=== PATIENT | female | born 1960 | race Caucasian/White ===

== ENCOUNTER 2019-04-08 10:51 | Inpatient (IN) | payer OTHER ==
[2019-04-08] MEDS ORDERED: IPRATROPIUM/ALBUTEROL (0.5MG/3MG) NEB INH ONE (11:02)
[2019-04-08] MEDS ORDERED: METHYLPREDNISOLONE PF 125MG/VIAL IVP ONE (11:02)
--- NOTE | 2019-04-08 11:07 | Emergency Department Record ---
History of Present Illness - General Chief Complaint: Difficulty Breathing Stated Complaint: NATALY Time Seen by Provider: 04/08/19 11:02 Source: Patient Mode of Arrival: Ambulatory Limitations: No limitations - History of Present Illness Initial Comments: 58 yo female presents with just over a week of cough and shortness of breath. She is a smoker. She does have a history of asthma. She states the cough has intermittently been productive. She was treated Amoxicillin, inhaler and steroids in the [facility]. She did initially improve but it got worse soon after the steroids finished. No fever. It does hurt to cough. No leg pain or swelling. MD Complaint: Cough, Shortness of breath -: Week(s) (1) Severity: Moderate Quality: Other Consistency: Constant Improves With: Nothing Worsens With: Coughing Known History Of: Asthma Context: Recent URI Associated Symptoms: Cough Treatments Prior to Arrival: Bronchodilator, Other (Steroids and Antibiotics) - Related Data Home Medications Medication Instructions Recorded Confirmed Last Taken Albuterol Sulfate [Ventolin Hfa] 1 - 2 puff IH .EVERY 4-6 HOURS PRN 04/08/19 04/08/19 Unknown Benzonatate [Tessalon] 1 cap PO Q8H PRN 04/08/19 04/08/19 Unknown Fluticasone Propionate [Flovent 12 gm IH DAILY 04/08/19 04/08/19 Unknown Hfa] Guaifenesin [Mucinex] 1,200 mg PO DAILY 04/08/19 04/08/19 Unknown Lisinopril/Hydrochlorothiazide 1 each PO DAILY 04/08/19 04/08/19 Unknown [Lisinopril-Hctz 20-12.5 mg Tab] Allergies Allergy/AdvReac Type Severity Reaction Status Date / Time No Known Allergies Allergy no Verified 04/08/19 11:15 allergies Review of Systems Constitutional: Denies: Chills, Fever, Malaise, Weakness Eyes: Denies: Eye discharge, Eye pain, Vision change ENT: Reports: Congestion Respiratory: Reports: Cough, Dyspnea, Wheezes Cardiovascular: Denies: Chest pain, Palpitations, Syncope Endocrine: Denies: Fatigue, Polydipsia, Polyuria Gastrointestinal: Denies: Abdominal pain, Diarrhea, Nausea, Vomiting Genitourinary: Denies: Dysuria, Urgency Musculoskeletal: Denies: Arthralgia, Back pain, Myalgia Skin: Denies: Bruising, Change in color, Rash Neurological: Denies: Headache Psychiatric: Denies: Anxiety Hematological/Lymphatic: Denies: Easy bleeding, Easy bruising Physical Exam - General General Appearance: Alert, Oriented x3, Cooperative, No acute distress Limitations: No limitations - Head Head exam: Atraumatic, Normal inspection - Eye Eye exam: Normal appearance, PERRL. negative: Conjunctival injection, Scleral icterus - ENT ENT exam: Normal exam, Mucous membranes moist Ear exam: Normal external inspection Nasal Exam: Normal inspection Mouth exam: Normal external inspection - Neck Neck exam: Normal inspection - Respiratory Respiratory exam: Decreased breath sounds, Prolonged expiratory, Rhonchi, Wheezes. negative: Normal lung sounds bilaterally, Accessory muscle use, Stridor - Cardiovascular Cardiovascular Exam: Regular rate, Normal rhythm, Normal heart sounds - GI/Abdominal GI/Abdominal exam: Soft. negative: Tenderness - Rectal Rectal exam: Deferred - exam: Deferred - Extremities Extremities exam: Normal inspection. negative: Pedal edema, Tenderness - Back Back exam: Denies: CVA tenderness (R), CVA tenderness (L) - Neurological Neurological exam: Alert, Oriented X3 - Psychiatric Psychiatric exam: Normal affect, Normal mood - Skin Skin exam: Dry, Intact, Normal color, Warm Course - Reevaluation(s) Reevaluation #1: 04/08/19 11:19 EKG #1: 11:04 Rate: 120 Rhythm: sinus tachycardia [place]: normal Intervals: normal ST segments: no acute abnormalities, minimal J point elevation Prior: 04/08/19 12:11 The labs were reviewed No acute changes on the CBC The K on the CMP was 3.3 Replacement ordered Troponin is normal BNP normal for age The CXR was reviewed by me. Infiltrate noted on the right consistent with pneumonia 04/08/19 12:19 Influenza are negative 04/08/19 12:26 The case was discussed with Tara Garay ANALYSIS DIRECTOR for admission for pneumonia Medical Decision Making - Lab Data Result diagrams: 04/08/19 11:15 04/08/19 11:15 Disposition Disposition: Admit Clinical Impression: Pneumonia Qualifiers: Pneumonia type: due to unspecified organism Laterality: right Lung location: lower lobe of lung Qualified Code(s): J18.1 - Lobar pneumonia, unspecified organism Disposition: Home, Self-Care Decision to Admit: Admit from ER Decision to Admit Date: 04/08/19 Decision to Admit Time: 12:13 Condition: (1) Good Forms: Patient Portal Access Time of Disposition: 12:13 Quality - Quality Measures Quality Measures: N/A - Blood Pressure Screening Does Patient Have Any of the Following: Active Dx of HTN Blood Pressure Classification: Hypertensive Reading Systolic Measurement: 192 Diastolic Measurement: 118 Screening for High Blood Pressure: Patient Exclusion, Hx of HTN [[id number]]
[2019-04-08 11:22] LABS: ABSOLUTE NEUTROPHIL COUNT 7.23; BASO % 0.4 % (0-6); EOS % 2.7 % (0-6); HEMATOCRIT 40.9 % (35.0-47.0); HEMOGLOBIN 13.2 gm/dl (11.6-16.0); LYMPH % 15.7 % (16-45); MEAN CELL VOLUME 87.6 fl (81-97); MEAN CORPUSCULAR HEMOGLOBIN 28.3 pg (27-33); MEAN CORPUSCULAR HGB CONC 32.3 g/dl (32-36); MEAN PLATELET VOLUME 10.1 fl (7.4-10.4); MONO % 6.2 % (0-9); PLATELET COUNT 231 K/uL (130-400); RED BLOOD COUNT 4.67 M/uL (3.80-5.40); RED CELL DISTRIBUTION WIDTH 13.5 % (11.5-14.5); WHITE BLOOD COUNT W/O DIFF 9.6 K/uL (4.2-12.2)
[2019-04-08 11:32] LABS: BLOOD UREA NITROGEN 14 mg/dL (6-20); CREATININE 0.6 mg/dL (0.5-0.9); EST GLOMERULAR FILTRATION RATE > 60 mL/min; TOTAL PROTEIN 8.1 g/dL (6.6-8.7)
[2019-04-08 11:34] LABS: GLUCOSE,RANDOM 132 mg/dL (74-109)
[2019-04-08 11:37] LABS: ALB/GLOB RATIO 1.1 (1.1-1.8); ALBUMIN 4.3 g/dL (4.0-5.0); ALKALINE PHOSPHATASE 77 U/L (35-104); ALT/SGPT 17 U/L (<33); AST/SGOT 24 U/L (10.0-35.0)
[2019-04-08] MEDS ORDERED: POTASSIUM CHLORIDE 20 MEQ TABLET PO ONE (12:11)
[2019-04-08] MEDS ORDERED: AZITHROMYCIN 500 MG TABLET PO ONE (12:13)
[2019-04-08] MEDS ORDERED: CEFTRIAXONE 1GM/50ML BAG 1 GM/50 ML BAG IVPB ONE (12:13)
[2019-04-08] MEDS ORDERED: ALBUTEROL SULFATE (0.083%) 2.5 MG/3 ML NEB INH PRN (12:47)
[2019-04-08] MEDS ORDERED: ACETAMINOPHEN 325 MG TAB PO PRN (12:47)
--- NOTE | 2019-04-08 13:10 | History & Physical ---
History of Present Illness - Date of Service Date of Service for History & Physical: 04/08/19 - History of Present Illness Admitting Diagnosis: Pneumonia, Asthma History of Present Illness: 58 year old female patient presented to ED for evaluation of worsening cough and shortness of breath. Patient reports being treated 04/04/19 in [facility] with Amoxicillin and steroids for bronchitis. Patient states that as soon as the steroids were completed she noted worsening shortness of breath resume. Patient reports a non-productive cough, denies fever or chills. Patient is a current smoker, also reports a history of asthma which is treated with prn albuterol. Patient reports a history of only HTN in addition to the asthma. PCP: Dr. Janessa Calles ([place]) ED Course: CXR: RML and RADHAMES infiltrates WBC 9.6 Troponin <0.01 Influenza negative EK, sinus tachycardia Rocephin 1g q12h Azithromycin 500mg daily 125mg Solumedrol, 60mg q8h Duoneb q4h 04/08/19: Patient A&O x 4, resting comfortably in bed. Mild conversational dyspnea noted. Reports mild rib pain with coughing. Hypertension noted on exam, denies headache, dizziness, numbness, or chest pain. Travel Screening - Travel/Exposure Within Last 30 Days Have you traveled within the last 30 days?: No Review of Systems Reviewed: No additional complaints except as noted below Constitutional: Denies: Chills, Fever, Malaise, Weakness Eyes: Denies: Eye discharge, Eye pain, Vision change ENT: Reports: Congestion Respiratory: Reports: Cough, Dyspnea, Wheezes Cardiovascular: Denies: Chest pain, Palpitations, Syncope Endocrine: Denies: Fatigue, Polydipsia, Polyuria Gastrointestinal: Denies: Abdominal pain, Diarrhea, Nausea, Vomiting Genitourinary: Denies: Dysuria, Urgency Musculoskeletal: Denies: Arthralgia, Back pain, Myalgia Skin: Denies: Bruising, Change in color, Rash Neurological: Denies: Headache Psychiatric: Denies: Anxiety Hematological/Lymphatic: Denies: Easy bleeding, Easy bruising Past Medical History - SOCIAL HISTORY Smoking Status: Current every day smoker Alcohol Use: None Drug Use: None - RESPIRATORY Hx Respiratory Disorders: Yes Hx Asthma: Yes - CARDIOVASCULAR Hx Cardio Disorders: Yes Hx Hypertension: Yes - NEURO Hx Neuro Disorders: No - GI Hx GI Disorders: No - Hx Genitourinary Disorders: No - ENDOCRINE Hx Endocrine Disorders: No - MUSCULOSKELETAL Hx Musculoskeletal Disorders: No - PSYCH Hx Psych Problems: No - HEMATOLOGY/ONCOLOGY Hx Hematology/Oncology Disorders: No Family Medical History Any Significant Family History?: No H&P Meds/Allergies - Allergies Allergies: Allergies Allergy/AdvReac Type Severity Reaction Status Date / Time No Known Allergies Allergy no Verified 04/08/19 11:15 allergies - Home Medications Home Medications Medication Instructions Recorded Confirmed Last Taken Albuterol Sulfate [Ventolin Hfa] 1 - 2 puff IH .EVERY 4-6 HOURS PRN 04/08/19 04/08/19 Unknown Benzonatate [Tessalon] 1 cap PO Q8H PRN 04/08/19 04/08/19 Unknown Fluticasone Propionate [Flovent 12 gm IH DAILY 04/08/19 04/08/19 Unknown Hfa] Guaifenesin [Mucinex] 1,200 mg PO DAILY 04/08/19 04/08/19 Unknown Lisinopril/Hydrochlorothiazide 1 each PO DAILY 04/08/19 04/08/19 Unknown [Lisinopril-Hctz 20-12.5 mg Tab] - Active Medications Active Medications: Current Medications Acetaminophen (Tylenol 325mg) 650 mg PO Q6H PRN PRN Reason: PAIN - MILD(1-4)/FEVER Albuterol Sulfate (Albuterol Sulfate) 2.5 mg INH RESP.Q2H PRN PRN Reason: DIFFICULTY IN BREATHING Albuterol/Ipratropium (Duoneb) 3 ml INH RESP.Q4H.[facility] Azithromycin (Zithromax) 500 mg PO DAILY [facility] Benzonatate (Tessalon) 100 mg PO Q8H PRN PRN Reason: COUGH Hydrochlorothiazide (Hctz 12.5mg) 12.5 mg PO DAILY [facility] CEFTRIAXONE 1GM/50ML BAG (Ceftriaxone 1 Gm-D5w Bag) 1 gm in 50 mls @ 100 mls/hr IVPB Q12HR [facility] Lisinopril (Zestril) 20 mg PO DAILY [facility] Methylprednisolone Sodium Succinate (Solu-Medrol) 60 mg IVP Q8H [facility] Non-Formulary Medication (Fluticasone Propionate [Flovent Hfa]) 12 gm IH DAILY [facility] Physical Exam - Vital Signs Vital Signs: Vital Signs - Last 24 Hrs Temp Pulse Pulse Resp BP BP Pulse Ox 04/08/19 12:23 110 H 20 191/105 98 04/08/19 11:16 118 H 24 98 04/08/19 11:04 98.3 F 118 H 24 192/118 96 - General General Appearance: Alert, Oriented x3, Cooperative, No acute distress Limitations: No limitations - Head Head exam: Atraumatic, Normal inspection - Eye Eye exam: Normal appearance, PERRL. negative: Conjunctival injection, Scleral icterus - ENT ENT exam: Normal exam, Mucous membranes moist Ear exam: Normal external inspection Nasal Exam: Normal inspection Mouth exam: Normal external inspection - Neck Neck exam: Normal inspection - Respiratory Respiratory exam: Rhonchi, Wheezes (scattered throughout), Other (mild conversational dyspnea). negative: Normal lung sounds bilaterally, Accessory muscle use, Stridor - Cardiovascular Cardiovascular Exam: Normal rhythm, Normal heart sounds, Tachycardia Peripheral Pulses: 2+: Radial (R), Radial (L), Dorsalis Pedis (R), Dorsalis Pedis (L) - GI/Abdominal GI/Abdominal exam: Soft. negative: Tenderness - Rectal Rectal exam: Deferred - exam: Deferred - Extremities Extremities exam: Normal inspection. negative: Pedal edema, Tenderness - Back Back exam: Denies: CVA tenderness (R), CVA tenderness (L) - Neurological Neurological exam: Alert, Normal gait, Oriented X3 - Psychiatric Psychiatric exam: Normal affect, Normal mood - Skin Skin exam: Dry, Intact, Normal color, Warm Results - Labs Result Diagrams: 04/08/19 11:15 04/08/19 11:15 Labs Last 24 Hours: Laboratory Results - last 24 hr 04/08/19 04/08/19 11:15 11:15 WBC 9.6 RBC 4.67 Hgb 13.2 Hct 40.9 MCV 87.6 MCH 28.3 MCHC 32.3 RDW 13.5 Plt Count 231 MPV 10.1 Gran % 75.0 Lymphocytes % 15.7 L Monocytes % 6.2 Eosinophils % 2.7 Basophils % 0.4 Absolute Neutrophils 7.23 Sodium 136 Potassium 3.2 L Chloride 98 Carbon Dioxide 23.0 Anion Gap 15.0 BUN 14 Creatinine 0.6 Estimated GFR > 60 Random Glucose 132 H Calcium 9.4 Total Bilirubin 0.20 AST 24 ALT 17 Alkaline Phosphatase 77 Troponin T < 0.010 NT-Pro-B Natriuret Pep 325.90 H Total Protein 8.1 Albumin 4.3 Globulin 3.8 Albumin/Globulin Ratio 1.1 - Imaging and Cardiology Chest x-ray Status: Report reviewed VTE H&P Assessment - Risk for VTE Risk for VTE: Yes Risk Level: Moderate Risk Assessment Date: 04/08/19 Risk Assessment Time: 13:00 VTE Orders Placed or Will Be Placed: Yes Plan - Inpatient Certification Inpatient Certification: Admit to inpatient care: Based on my medical assessment, after consideration of patient's risk factors (age, co-morbidities and patient presenting symptoms and acuity), I expect that this patient will remain in the hospital greater than or equal to two midnights and that the services needed warrant inpatient care because: Patient Risk Factors: [pneumonia, age, shortness of breath] Estimated length of stay: The patient may reasonably be expected to be discharged or transferred to a hospital within 24-72 hours after admission to [facility]. Services needed: [supplemental oxygen, steroids, IV antibiotics, breathing treatments] Post hospital care (if known): [] I certify that my determination is in accordance with my understanding of Medicare requirements for reasonable and necessary inpatient services. 04/08/19 21:32 - Detailed Diagnosis and Plan (1) Pneumonia Current Visit: Yes Status: Acute Qualifiers: Pneumonia type: due to unspecified organism Laterality: right Lung location: lower lobe of lung Qualified Code(s): J18.1 - Lobar pneumonia, unspecified organism Base Code: J18.9 - PNEUMONIA, UNSPECIFIED ORGANISM Comment: 04/08/19: -CXR: RML and RADHAMES infiltrates -influenza negative -WBC 9.6 -Rocephin 1g IVPB q12h, Azithromycin 500mg q24h -Solumedrol 60mg q8h -Duoneb q4h -bobbin fixer -Supplemental oxygen to keep pulse ox >92% (2) Hypertension Current Visit: Yes Status: Acute Base Code: I10 - ESSENTIAL (PRIMARY) HYPERTENSION Comment: 04/08/19: -Uncontrolled HTN this admission -Asymptomatic -Takes Lisinopril 20mg, HCTZ 12.5mg daily at home -Resume home medications -Hydralazine 10mg q4h prn systolic >160 -Amlodipine 5mg daily started (3) DVT prophylaxis Current Visit: Yes Status: Acute Base Code: Z29.9 - ENCOUNTER FOR [place] OPHYLACTIC MEASURES, UNSPECIFIED Comment: 04/08/19: -Moderate risk due to hospitalization and illness -Lovenox 40mg SQ daily (4) Full code status Current Visit: Yes Status: Acute Base Code: Z78.9 - OTHER SPECIFIED HEALTH STATUS Comment: 04/08/19: -Full code this admission
[2019-04-08] MEDS: BENZONATATE 100 MG CAPSULE PO PRN (13:11)
[2019-04-08] MEDS: HYDRALAZINE 20MG/ML VIAL IV PRN ×3 (13:18→22:35)
[2019-04-08] MEDS: ALPRAZOLAM 0.25 MG TABLET PO PRN (13:22)
[2019-04-08] MEDS ORDERED: HYDROCHLOROTHIAZIDE 12.5 MG CAPSULE PO SCH (13:30)
[2019-04-08] MEDS ORDERED: LISINOPRIL 20 MG TABLET PO SCH (13:30)
[2019-04-08] MEDS ORDERED: PNEUM 23-VAL ADULT IM ONE (13:50)
[2019-04-08] MEDS: IPRATROPIUM/ALBUTEROL (0.5MG/3MG) NEB INH SCH ×3 (13:54→22:15)
[2019-04-08] MEDS: 0.9 % SODIUM CHLORIDE 1000ML 1,000 ML IV SCH (13:58)
--- NOTE | 2019-04-08 14:43 | RADIOLOGY REPORT ---
EXAMINATION: Two View Chest Radiographs EXAM DATE: 04/08/2019 12:07 PM TECHNIQUE: Frontal and lateral views INDICATION: cough, short of breath COMPARISON: None ENCOUNTER: Not applicable FINDINGS: Right middle lobe confluent infiltrate. Patchy left upper lobe infiltrate. Peribronchial cuffing. No pleural effusions. Cardiomediastinal silhouette and pulmonary vasculature within normal limits. No pn eumothorax. IMPRESSION: Bibasilar patchy infiltrates perhaps relating to aspiration pneumonitis. Infective bronchiolitis also possible. Dictated by: Gonzalez Salguero DO on 04/08/2019 12:48 PM. .
[2019-04-08 14:53] LABS: URINE APPEARANCE CLEAR; URINE BILIRUBIN NEGATIVE (NEGATIVE); URINE BLOOD TRACE-L (NEGATIVE); URINE COLOR YELLOW; URINE KETONE NEGATIVE (NEGATIVE); URINE LEUKOCYTE ESTERASE NEGATIVE (NEGATIVE); URINE NITRITE NEGATIVE (NEGATIVE); URINE PROTEIN NEGATIVE (NEGATIVE); URINE UROBILINOGEN 0.2 E.U./dL (0.20 - 1.00)
[2019-04-08 15:06] LABS: URINE EPITHELIAL CELLS RARE (FEW); URINE RBC RARE (NONE SEEN); URINE WBC NONE SEEN (0-2/hpf)
[2019-04-08] MEDS: GUAIFENESIN/D-METH. 10 ML UDC PO PRN (17:01)
[2019-04-08] MEDS ORDERED: HYDRALAZINE 20MG/ML VIAL IV PRN (21:22)
[2019-04-08] MEDS ORDERED: AMLODIPINE BESYLATE 5MG TAB PO SCH (21:30)
[2019-04-08] MEDS: CEFTRIAXONE 1GM/50ML BAG 1 GM/50 ML BAG IVPB SCH (21:32)
[2019-04-08] MEDS: METHYLPREDNISOLONE PF 125MG/VIAL IVP SCH (21:32)
[2019-04-09] MEDS: GUAIFENESIN/D-METH. 10 ML UDC PO PRN ×2 (00:46→08:22)
[2019-04-09] MEDS: HYDRALAZINE 20MG/ML VIAL IV PRN ×3 (02:24→13:15)
[2019-04-09] MEDS: 0.9 % SODIUM CHLORIDE 1000ML 1,000 ML IV SCH ×2 (02:31→16:31)
[2019-04-09] MEDS ORDERED: CLONIDINE HCL 0.1 MG TABLET PO ONE (04:15)
[2019-04-09] MEDS ORDERED: HYDRALAZINE 20MG/ML VIAL IV PRN (05:15)
[2019-04-09] MEDS: IPRATROPIUM/ALBUTEROL (0.5MG/3MG) NEB INH SCH ×5 (06:11→21:52)
[2019-04-09] MEDS: METHYLPREDNISOLONE PF 125MG/VIAL IVP SCH (06:12)
[2019-04-09 06:32] LABS: ABSOLUTE NEUTROPHIL COUNT 7.79; BASO % 0.2 % (0-6); GRAN % 78.7 % (47-80); HEMATOCRIT 39.4 % (35.0-47.0); LYMPH % 16.4 % (16-45); MEAN CELL VOLUME 86.4 fl (81-97); MEAN CORPUSCULAR HEMOGLOBIN 28.5 pg (27-33); MEAN PLATELET VOLUME 9.9 fl (7.4-10.4); MONO % 4.7 % (0-9); PLATELET COUNT 312 K/uL (130-400); RED BLOOD COUNT 4.56 M/uL (3.80-5.40); RED CELL DISTRIBUTION WIDTH 13.7 % (11.5-14.5); WHITE BLOOD COUNT W/O DIFF 9.9 K/uL (4.2-12.2)
[2019-04-09 06:52] LABS: BLOOD UREA NITROGEN 12 mg/dL (6-20); CREATININE 0.6 mg/dL (0.5-0.9); EST GLOMERULAR FILTRATION RATE > 60 mL/min; GLUCOSE,RANDOM 201 mg/dL (74-109)
[2019-04-09] MEDS: LISINOPRIL 20 MG TABLET PO SCH ×2 (08:19→10:31)
[2019-04-09] MEDS: HYDROCHLOROTHIAZIDE 25 MG TABLET PO SCH ×2 (08:21→10:31)
[2019-04-09] MEDS: ALPRAZOLAM 0.25 MG TABLET PO PRN (08:21)
--- NOTE | 2019-04-09 08:23 | Physician Progress Note ---
Subjective - Date Date of Physician Progress Note: 04/09/19 - Subjective Subjective Comment: The patient is doing well this morning and respiratory status has improved since admission. The patient is alert and oriented x 3 and does not appear to be in acute distress. However blood pressure is still not well controlled despite PRN hydralazine and the addition of Norvasc. Objective - Vital Signs Vital Signs: Vital Signs - Last 24 Hrs Temp Pulse Pulse Pulse Resp BP BP 04/09/19 08:06 98.1 F 107 H 16 209/107 04/09/19 06:11 102 H 20 04/09/19 05:37 97.5 F L 119 H 105 H 18 04/09/19 03:37 118 H 18 187/97 04/09/19 02:25 108 H 195/100 04/09/19 00:48 98.5 F 120 H 28 H 185/83 04/08/19 23:22 122 H 167/91 04/08/19 22:30 113 H 18 165/95 04/08/19 22:15 107 H 20 04/08/19 20:38 98.5 F 106 H 106 H 20 200/103 04/08/19 19:57 118 H 100 H 20 218/107 04/08/19 18:15 112 H 18 04/08/19 15:10 97.7 F 103 H 16 169/98 04/08/19 14:00 110 H 18 04/08/19 12:56 109 H 20 252/124 04/08/19 12:23 110 H 20 191/105 04/08/19 11:16 118 H 24 04/08/19 11:04 98.3 F 118 H 24 192/118 BP Pulse Ox 04/09/19 08:06 218/124 96 04/09/19 06:11 98 04/09/19 05:37 157/117 96 04/09/19 03:37 04/09/19 02:25 04/09/19 00:48 98 04/08/19 23:22 04/08/19 22:30 100 04/08/19 22:15 97 04/08/19 20:38 100 04/08/19 19:57 100 04/08/19 18:15 97 04/08/19 15:10 97 04/08/19 14:00 99 04/08/19 12:56 95 04/08/19 12:23 98 04/08/19 11:16 98 04/08/19 11:04 96 - General General Appearance: Alert, Oriented x3, Cooperative, No acute distress Limitations: No limitations - Head Head exam: Atraumatic, Normal inspection - Eye Eye exam: Normal appearance, PERRL. negative: Conjunctival injection, Scleral icterus - ENT ENT exam: Normal exam, Mucous membranes moist Ear exam: Normal external inspection Nasal Exam: Normal inspection Mouth exam: Normal external inspection - Neck Neck exam: Normal inspection - Respiratory Respiratory exam: Rhonchi, Wheezes (scattered throughout). negative: Normal lung sounds bilaterally, Accessory muscle use, Stridor - Cardiovascular Cardiovascular Exam: Normal rhythm, Normal heart sounds, Tachycardia Peripheral Pulses: 2+: Radial (R), Radial (L), Dorsalis Pedis (R), Dorsalis Pedis (L) - GI/Abdominal GI/Abdominal exam: Soft. negative: Tenderness - Rectal Rectal exam: Deferred - exam: Deferred - Extremities Extremities exam: Normal inspection. negative: Pedal edema, Tenderness - Back Back exam: Denies: CVA tenderness (R), CVA tenderness (L) - Neurological Neurological exam: Alert, Normal gait, Oriented X3 - Psychiatric Psychiatric exam: Normal affect, Normal mood, Other (tearful) - Skin Skin exam: Dry, Intact, Normal color, Warm Assessment and Plan - Assessment and Plan (1) Hypertension Current Visit: Yes Status: Acute Base Code: I10 - ESSENTIAL (PRIMARY) HYPERTENSION Comment: 04/09/19: -Asymptomatic -Takes Lisinopril 20mg, HCTZ 12.5mg daily at home. -Hydralazine 10mg q4h prn systolic >160 -Amlodipine 10mg daily (2) Pneumonia Current Visit: Yes Status: Acute Qualifiers: Pneumonia type: due to unspecified organism Laterality: right Lung location: lower lobe of lung Qualified Code(s): J18.1 - Lobar pneumonia, unspecified organism Base Code: J18.9 - PNEUMONIA, UNSPECIFIED ORGANISM Comment: 04/09/19: -CXR: RML and RADHAMES infiltrates -influenza negative -WBC 9.6, 9.9 -Rocephin 1g IVPB q12h, Azithromycin 500mg q24h -Solumedrol 60mg q8h -Duoneb q4h -equipment monitor phototypesetting -Supplemental oxygen to keep pulse ox >92% (3) Light smoker Current Visit: Yes Status: Acute Base Code: F17.210 - NICOTINE DEPENDENCE, CIGARETTES, UNCOMPLICATED Comment: 04/09/19: - Recent hx of smoking. (4) History of asthma Current Visit: Yes Status: Acute Base Code: Z87.09 - PERSONAL HISTORY OF OTHER DISEASES OF THE RESPIRATORY SYSTEM Comment: 04/09/19: - Albuterol nebs Q2 hours PRN. - Maintain oxygen sats > 92 %. (5) DVT prophylaxis Current Visit: Yes Status: Acute Base Code: Z29.9 - ENCOUNTER FOR PROPHYLACTIC MEASURES, UNSPECIFIED Comment: 04/09/19: -Moderate risk due to hospitalization and illness -Lovenox 40mg SQ daily (6) Full code status Current Visit: Yes Status: Acute Base Code: Z78.9 - OTHER SPECIFIED HEALTH STATUS Comment: 04/09/19: -Full code this admission Results - Labs Result Diagrams: 04/09/19 06:20 04/09/19 06:20 Labs Last 24 Hours: Laboratory Results - last 24 hr 04/08/19 04/08/19 04/08/19 11:15 11:15 14:45 WBC 9.6 RBC 4.67 Hgb 13.2 Hct 40.9 MCV 87.6 MCH 28.3 MCHC 32.3 RDW 13.5 Plt Count 231 MPV 10.1 Gran % 75.0 Lymphocytes % 15.7 L Monocytes % 6.2 Eosinophils % 2.7 Basophils % 0.4 Absolute Neutrophils 7.23 Sodium 136 Potassium 3.2 L Chloride 98 Carbon Dioxide 23.0 Anion Gap 15.0 BUN 14 Creatinine 0.6 Estimated GFR > 60 Random Glucose 132 H Calcium 9.4 Total Bilirubin 0.20 AST 24 ALT 17 Alkaline Phosphatase 77 Troponin T < 0.010 NT-Pro-B Natriuret Pep 325.90 H Total Protein 8.1 Albumin 4.3 Globulin 3.8 Albumin/Globulin Ratio 1.1 Urine Color Yellow Urine Appearance Clear Urine pH 6.0 Ur Specific [place] <= 1.005 Urine Protein Negative Urine Glucose (UA) 100 mg/dl H Urine Ketones Negative Urine Blood Trace-l Urine Nitrite Negative Urine Bilirubin Negative Urine Urobilinogen 0.2 Ur Leukocyte Esterase Negative Urine RBC Rare Urine WBC None seen Ur Epithelial Cells Rare 04/09/19 04/09/19 06:20 06:20 WBC 9.9 RBC 4.56 Hgb 13.0 Hct 39.4 MCV 86.4 MCH 28.5 MCHC 33.0 RDW 13.7 Plt Count 312 MPV 9.9 Gran % 78.7 Lymphocytes % 16.4 Monocytes % 4.7 Eosinophils % 0.0 Basophils % 0.2 Absolute Neutrophils 7.79 Sodium 139 Potassium 3.4 Chloride 101 Carbon Dioxide 23.0 Anion Gap 15.0 BUN 12 Creatinine 0.6 Estimated GFR > 60 Random Glucose 201 H Calcium 9.6 Total Bilirubin AST ALT Alkaline Phosphatase Troponin T NT-Pro-B Natriuret Pep Total Protein Albumin Globulin Albumin/Globulin Ratio Urine Color Urine Appearance Urine pH Ur Specific [place] Urine Protein Urine Glucose (UA) Urine Ketones Urine Blood Urine Nitrite Urine Bilirubin Urine Urobilinogen Ur Leukocyte Esterase Urine RBC Urine WBC Ur Epithelial Cells DVT/PE Assessment - Risk for VTE Risk for VTE: No Risk Level: Moderate Risk Assessment Date: 04/08/19 Risk Assessment Time: 13:00 VTE Orders Placed or Will Be Placed: Yes - Active Medicaitons Current Medications: Current Medications Acetaminophen (Tylenol 325mg) 650 mg PO Q6H PRN PRN Reason: PAIN - MILD(1-4)/FEVER Last Admin: 04/08/19 13:09 Dose: 650 mg Documented by: Albuterol Sulfate (Albuterol Sulfate) 2.5 mg INH RESP.Q2H PRN PRN Reason: DIFFICULTY IN BREATHING Albuterol/Ipratropium (Duoneb) 3 ml INH RESP.Q4H.[facility] Last Admin: 04/09/19 06:11 Dose: 3 ml Documented by: Alprazolam (Xanax) 0.25 mg PO Q8H PRN PRN Reason: ANXIETY Last Admin: 04/08/19 13:22 Dose: 0.25 mg Documented by: Amlodipine Besylate (Norvasc) 5 mg PO ONCE [facility] Last Admin: 04/08/19 21:32 Dose: 5 mg Documented by: Azithromycin (Zithromax) 500 mg PO DAILY [facility] Benzonatate (Tessalon) 100 mg PO Q8H PRN PRN Reason: COUGH Last Admin: 04/08/19 13:11 Dose: 100 mg Documented by: Enoxaparin Sodium (Lovenox) 40 mg SQ DAILY [facility] Guaifenesin (Robitussin Dm) 10 ml PO Q6H PRN PRN Reason: COUGH Last Admin: 04/09/19 00:46 Dose: 10 ml Documented by: Hydralazine HCl (Apresoline) 10 mg IV Q4H PRN PRN Reason: BLOOD PRESSURE Last Admin: 04/09/19 02:24 Dose: 10 mg Documented by: Hydralazine HCl (Apresoline) 10 mg IV NOW PRN PRN Reason: BLOOD PRESSURE Hydrochlorothiazide (Hctz 25mg) 25 mg PO DAILY [facility] CEFTRIAXONE 1GM/50ML BAG (Ceftriaxone 1 Gm-D5w Bag) 1 gm in 50 mls @ 100 mls/hr IVPB Q12HR [facility] Last Infusion: 04/08/19 23:30 Dose: Infused Documented by: Sodium Chloride () 1,000 mls @ 75 mls/hr IV .[id number] [facility] Last Admin: 04/09/19 02:31 Dose: 75 mls/hr Documented by: Lisinopril (Zestril) 40 mg PO DAILY [facility] Methylprednisolone Sodium Succinate (Solu-Medrol) 60 mg IVP Q8H [facility] Last Admin: 04/09/19 06:12 Dose: 60 mg Documented by: AMI Plan - Labs Result Diagrams: 04/09/19 06:20 04/09/19 06:20
[2019-04-09] MEDS ORDERED: AMLODIPINE BESYLATE 5MG TAB PO SCH (10:00)
[2019-04-09] MEDS ORDERED: FLUTICASONE PROPIONATE IH SCH (10:00)
[2019-04-09] MEDS: AZITHROMYCIN 500 MG TABLET PO SCH (10:30)
[2019-04-09] MEDS: AMLODIPINE BESYLATE 5MG TAB PO SCH (10:30)
[2019-04-09] MEDS: ENOXAPARIN 40 MG/0.4 ML SYR SQ SCH (10:30)
[2019-04-09] MEDS: CEFTRIAXONE 1GM/50ML BAG 1 GM/50 ML BAG IVPB SCH ×2 (10:30→21:32)
[2019-04-10] MEDS: IPRATROPIUM/ALBUTEROL (0.5MG/3MG) NEB INH SCH ×3 (01:54→10:02)
[2019-04-10] MEDS: GUAIFENESIN/D-METH. 10 ML UDC PO PRN (01:55)
[2019-04-10] MEDS: BENZONATATE 100 MG CAPSULE PO PRN (05:47)
[2019-04-10] MEDS: 0.9 % SODIUM CHLORIDE 1000ML 1,000 ML IV SCH (05:52)
[2019-04-10] MEDS: HYDRALAZINE 20MG/ML VIAL IV PRN (06:14)
[2019-04-10 06:57] LABS: ABSOLUTE NEUTROPHIL COUNT 7.67; HEMATOCRIT 41.1 % (35.0-47.0); HEMOGLOBIN 13.6 gm/dl (11.6-16.0); MEAN CELL VOLUME 87.8 fl (81-97); MEAN CORPUSCULAR HEMOGLOBIN 29.1 pg (27-33); MEAN CORPUSCULAR HGB CONC 33.1 g/dl (32-36); MEAN PLATELET VOLUME 10.1 fl (7.4-10.4); PLATELET COUNT 315 K/uL (130-400); RED BLOOD COUNT 4.68 M/uL (3.80-5.40); RED CELL DISTRIBUTION WIDTH 14.3 % (11.5-14.5)
[2019-04-10 07:01] LABS: BLOOD UREA NITROGEN 17 mg/dL (6-20); CREATININE 0.6 mg/dL (0.5-0.9); EST GLOMERULAR FILTRATION RATE > 60 mL/min; GLUCOSE,RANDOM 136 mg/dL (74-109)
[2019-04-10] MEDS ORDERED: POTASSIUM CHLORIDE 20 MEQ TABLET PO ONE (08:34)
[2019-04-10] MEDS: AMLODIPINE BESYLATE 5MG TAB PO SCH ×2 (08:39→09:56)
[2019-04-10] MEDS: HYDROCHLOROTHIAZIDE 25 MG TABLET PO SCH ×2 (08:39→09:55)
[2019-04-10] MEDS: LISINOPRIL 20 MG TABLET PO SCH ×2 (08:40→09:56)
[2019-04-10] MEDS ORDERED: SPIRONOLACTONE 25 MG TAB PO ONE (08:45)
--- NOTE | 2019-04-10 09:37 | Physician Progress Note ---
Subjective - Date Date of Physician Progress Note: 04/10/19 - Subjective Subjective Comment: The patient says that her breathing has improved and that she is feeling better. Her blood pressure remains elevated. Objective - Vital Signs Vital Signs: Vital Signs - Last 24 Hrs Temp Pulse Pulse Pulse Resp BP BP 04/10/19 07:30 97.9 F 105 H 17 194/82 04/10/19 07:06 114 H 176/108 04/10/19 06:00 98.1 F 98 H 98 H 18 206/101 04/10/19 05:59 89 20 04/10/19 01:54 97 H 20 04/09/19 21:52 97 H 20 04/09/19 20:00 97.8 F 104 H 20 152/98 04/09/19 18:31 120 H 18 04/09/19 14:25 114 H 116 H 18 168/101 04/09/19 13:45 110 H 160/99 04/09/19 12:35 98.1 F 130 H 24 166/98 04/09/19 10:19 98.1 F 114 H 20 166/99 04/09/19 10:15 115 H 18 Pulse Ox 04/10/19 07:30 98 04/10/19 07:06 04/10/19 06:00 98 04/10/19 05:59 94 L 04/10/19 01:54 96 04/09/19 21:52 96 04/09/19 20:00 98 04/09/19 18:31 96 04/09/19 14:25 97 04/09/19 13:45 04/09/19 12:35 99 04/09/19 10:19 99 04/09/19 10:15 94 L - General General Appearance: Alert, Oriented x3, Cooperative, No acute distress Limitations: No limitations - Head Head exam: Atraumatic, Normal inspection - Eye Eye exam: Normal appearance, PERRL. negative: Conjunctival injection, Scleral icterus - ENT ENT exam: Normal exam, Mucous membranes moist Ear exam: Normal external inspection Nasal Exam: Dried blood, Other (nasal mucosa dry ) Mouth exam: Normal external inspection - Neck Neck exam: Normal inspection - Respiratory Respiratory exam: Rhonchi. negative: Normal lung sounds bilaterally, Accessory muscle use, Stridor - Cardiovascular Cardiovascular Exam: Normal rhythm, Normal heart sounds, Tachycardia Peripheral Pulses: 2+: Radial (R), Radial (L), Dorsalis Pedis (R), Dorsalis Pedis (L) - GI/Abdominal GI/Abdominal exam: Soft. negative: Tenderness - Rectal Rectal exam: Deferred - exam: Deferred - Extremities Extremities exam: Normal inspection. negative: Pedal edema, Tenderness - Back Back exam: Denies: CVA tenderness (R), CVA tenderness (L) - Neurological Neurological exam: Alert, Normal gait, Oriented X3 - Psychiatric Psychiatric exam: Normal affect, Normal mood, Other (tearful) - Skin Skin exam: Dry, Intact, Normal color, Warm Assessment and Plan - Assessment and Plan (1) Hypokalemia Current Visit: Yes Status: Acute Base Code: E87.6 - HYPOKALEMIA Comment: 04/10/19: - 2.9 K, repletion with 40m meq klor-con - Potasssium sparing diuretic added. - Check K prior to discharge. (2) Hypertension Current Visit: Yes Status: Acute Base Code: I10 - ESSENTIAL (PRIMARY) HYPERTENSION Comment: 04/10/19: -Asymptomatic -Takes Lisinopril 20mg, HCTZ 12.5mg QD, Amlodipine 10mg QD, Aldactone 25mg daily since low potassium on morning labs and HTn resistant. - Keep Hydralazine 10mg q4h prn systolic >160. (3) Pneumonia Current Visit: Yes Status: Acute Qualifiers: Pneumonia type: due to unspecified organism Laterality: right Lung location: lower lobe of lung Qualified Code(s): J18.1 - Lobar pneumonia, unspecified organism Base Code: J18.9 - PNEUMONIA, UNSPECIFIED ORGANISM Comment: 04/10/19: -CXR: RML and RADHAMES infiltrates -influenza negative -WBC 9.6, 9.9, 13.0 likely due to steroid use. -Rocephin 1g IVPB q12h, Azithromycin 500mg q24h -Solumedrol 60mg q8h -Duoneb q4h -night monitor -Supplemental oxygen to keep pulse ox >92% (4) Light smoker Current Visit: Yes Status: Acute Base Code: F17.210 - NICOTINE DEPENDENCE, CIGARETTES, UNCOMPLICATED Comment: 04/10/19: - Recent hx of smoking. (5) History of asthma Current Visit: Yes Status: Acute Base Code: Z87.09 - PERSONAL HISTORY OF OTHER DISEASES OF THE RESPIRATORY SYSTEM Comment: 04/10/19: - Albuterol nebs Q2 hours PRN. - Maintain oxygen sats > 92 %. (6) DVT prophylaxis Current Visit: Yes Status: Acute Base Code: Z29.9 - ENCOUNTER FOR PROPHYLACTIC MEASURES, UNSPECIFIED Comment: 04/10/19: -Moderate risk due to hospitalization and illness -Lovenox 40mg SQ daily (7) Full code status Current Visit: Yes Status: Acute Base Code: Z78.9 - OTHER SPECIFIED HEALTH STATUS Comment: 04/10/19: -Full code this admission Results - Labs Result Diagrams: 04/10/19 06:33 04/10/19 06:33 Labs Last 24 Hours: Laboratory Results - last 24 hr 04/10/19 04/10/19 06:33 06:33 WBC 13.0 H RBC 4.68 Hgb 13.6 Hct 41.1 MCV 87.8 MCH 29.1 MCHC 33.1 RDW 14.3 Plt Count 315 MPV 10.1 Neutrophils % 55.0 Eosinophils % Not Reportable Basophils % Not Reportable Absolute Neutrophils 7.67 Lymphocytes 38.0 Monocytes 7.0 Sodium 138 Potassium 2.9 L* Chloride 101 Carbon Dioxide 22.0 Anion Gap 15.0 BUN 17 Creatinine 0.6 Estimated GFR > 60 Random Glucose 136 H Calcium 9.3 DVT/PE Assessment - Risk for VTE Risk for VTE: No Risk Level: Moderate Risk Assessment Date: 04/08/19 Risk Assessment Time: 13:00 VTE Orders Placed or Will Be Placed: Yes - Active Medicaitons Current Medications: Current Medications Acetaminophen (Tylenol 325mg) 650 mg PO Q6H PRN PRN Reason: PAIN - MILD(1-4)/FEVER Last Admin: 04/08/19 13:09 Dose: 650 mg Documented by: Albuterol Sulfate (Albuterol Sulfate) 2.5 mg INH RESP.Q2H PRN PRN Reason: DIFFICULTY IN BREATHING Albuterol/Ipratropium (Duoneb) 3 ml INH RESP.Q4H.WA KELLY Last Admin: 04/10/19 05:59 Dose: 3 ml Documented by: Alprazolam (Xanax) 0.25 mg PO Q8H PRN PRN Reason: ANXIETY Last Admin: 04/09/19 08:21 Dose: 0.25 mg Documented by: Amlodipine Besylate (Norvasc) 10 mg PO DAILY [facility] Last Admin: 04/10/19 08:39 Dose: 10 mg Documented by: Azithromycin (Zithromax) 500 mg PO DAILY [facility] Last Admin: 04/09/19 10:30 Dose: 500 mg Documented by: Benzonatate (Tessalon) 100 mg PO Q8H PRN PRN Reason: COUGH Last Admin: 04/10/19 05:47 Dose: 100 mg Documented by: Enoxaparin Sodium (Lovenox) 40 mg SQ DAILY [facility] Last Admin: 04/09/19 10:30 Dose: 40 mg Documented by: Guaifenesin (Robitussin Dm) 10 ml PO Q6H PRN PRN Reason: COUGH Last Admin: 04/10/19 01:55 Dose: 10 ml Documented by: Hydralazine HCl (Apresoline) 10 mg IV Q4H PRN PRN Reason: BLOOD PRESSURE Last Admin: 04/10/19 06:14 Dose: 10 mg Documented by: Hydralazine HCl (Apresoline) 10 mg IV NOW PRN PRN Reason: BLOOD PRESSURE Hydrochlorothiazide (Hctz 25mg) 25 mg PO DAILY [facility] Last Admin: 04/10/19 08:39 Dose: 25 mg Documented by: CEFTRIAXONE 1GM/50ML BAG (Ceftriaxone 1 Gm-D5w Bag) 1 gm in 50 mls @ 100 mls/hr IVPB Q12HR [facility] Last Infusion: 04/09/19 22:09 Dose: Infused Documented by: Sodium Chloride () 1,000 mls @ 75 mls/hr IV .[id number] [facility] Last Admin: 04/10/19 05:52 Dose: 75 mls/hr Documented by: Lisinopril (Zestril) 40 mg PO DAILY [facility] Last Admin: 04/10/19 08:40 Dose: 40 mg Documented by: Prednisone (Prednisone 20mg) 40 mg PO DAILYWM [facility] AMI Plan - Labs Result Diagrams: 04/10/19 06:33 04/10/19 06:33
[2019-04-10] MEDS ORDERED: PREDNISONE 20 MG TAB PO SCH (09:45)
[2019-04-10] MEDS: AZITHROMYCIN 500 MG TABLET PO SCH (09:54)
[2019-04-10] MEDS: ENOXAPARIN 40 MG/0.4 ML SYR SQ SCH (09:54)
[2019-04-10] MEDS: CEFTRIAXONE 1GM/50ML BAG 1 GM/50 ML BAG IVPB SCH (09:54)
--- NOTE | 2019-04-10 12:05 | Discharge Summary ---
Providers Discharge Summary Date: 04/10/19 Date of admission: 04/08/19 12:44 Attending physician: YVAN MCCRAY Physical Exam - Vital Signs Vital Signs: Vital Signs - Last 24 Hrs Temp Pulse Pulse Pulse Resp BP BP 04/10/19 11:00 111 H 17 169/103 04/10/19 10:02 100 H 18 04/10/19 09:00 105 H 20 04/10/19 07:30 97.9 F 105 H 17 194/82 04/10/19 07:06 114 H 176/108 04/10/19 06:00 98.1 F 98 H 98 H 18 206/101 04/10/19 05:59 89 20 04/10/19 01:54 97 H 20 04/09/19 21:52 97 H 20 04/09/19 20:00 97.8 F 104 H 20 152/98 04/09/19 18:31 120 H 18 04/09/19 14:25 114 H 116 H 18 168/101 04/09/19 13:45 110 H 160/99 04/09/19 12:35 98.1 F 130 H 24 166/98 Pulse Ox 04/10/19 11:00 98 04/10/19 10:02 96 04/10/19 09:00 04/10/19 07:30 98 04/10/19 07:06 04/10/19 06:00 98 04/10/19 05:59 94 L 04/10/19 01:54 96 04/09/19 21:52 96 04/09/19 20:00 98 04/09/19 18:31 96 04/09/19 14:25 97 04/09/19 13:45 04/09/19 12:35 99 - General General Appearance: Alert, Oriented x3, Cooperative, No acute distress Limitations: No limitations - Head Head exam: Atraumatic, Normal inspection - Eye Eye exam: Normal appearance, PERRL. negative: Conjunctival injection, Scleral icterus - ENT ENT exam: Normal exam, Mucous membranes moist Ear exam: Normal external inspection Nasal Exam: Dried blood, Other (nasal mucosa dry ) Mouth exam: Normal external inspection - Neck Neck exam: Normal inspection - Respiratory Respiratory exam: Rhonchi. negative: Normal lung sounds bilaterally, Accessory muscle use, Stridor - Cardiovascular Cardiovascular Exam: Normal rhythm, Normal heart sounds, Tachycardia Peripheral Pulses: 2+: Radial (R), Radial (L), Dorsalis Pedis (R), Dorsalis Pedis (L) - GI/Abdominal GI/Abdominal exam: Soft. negative: Tenderness - Rectal Rectal exam: Deferred - exam: Deferred - Extremities Extremities exam: Normal inspection. negative: Pedal edema, Tenderness - Back Back exam: Denies: CVA tenderness (R), CVA tenderness (L) - Neurological Neurological exam: Alert, Normal gait, Oriented X3 - Psychiatric Psychiatric exam: Normal affect, Normal mood, Other (tearful) - Skin Skin exam: Dry, Intact, Normal color, Warm Hospitalization - Hospitalization Admission Diagnosis: Pneumonia, Asthma - Problem List/Discharge Diagnosis (1) Hypokalemia Current Visit: Yes Status: Acute Base Code: E87.6 - HYPOKALEMIA Comment: 04/10/19: - 2.9 K, repletion with 40m meq klor-con - Potasssium sparing diuretic added. - Check K prior to discharge. (2) Hypertension Current Visit: Yes Status: Acute Base Code: I10 - ESSENTIAL (PRIMARY) HYPERTENSION Comment: 04/10/19: -Asymptomatic -Takes Lisinopril 20mg, HCTZ 12.5mg QD, Amlodipine 10mg QD, Aldactone 25mg daily since low potassium on morning labs and HTn resistant. - Keep Hydralazine 10mg q4h prn systolic >160. (3) Pneumonia Current Visit: Yes Status: Acute Discharge Diagnosis: Pneumonia type: due to unspecified organism Laterality: right Lung location: lower lobe of lung Qualified Code(s): J18.1 - Lobar pneumonia, unspecified organism Base Code: J18.9 - PNEUMONIA, UNSPECIFIED ORGANISM Comment: 04/10/19: -CXR: RML and RADHAMES infiltrates -influenza negative -WBC 9.6, 9.9, 13.0 likely due to steroid use. -Rocephin 1g IVPB q12h, Azithromycin 500mg q24h -Solumedrol 60mg q8h -Duoneb q4h -make up girl -Supplemental oxygen to keep pulse ox >92% (4) Light smoker Current Visit: Yes Status: Acute Base Code: F17.210 - NICOTINE DEPENDENCE, CIGARETTES, UNCOMPLICATED Comment: 04/10/19: - Recent hx of smoking. (5) History of asthma Current Visit: Yes Status: Acute Base Code: Z87.09 - PERSONAL HISTORY OF OTHER DISEASES OF THE RESPIRATORY SYSTEM Comment: 04/10/19: - Albuterol nebs Q2 hours PRN. - Maintain oxygen sats > 92 %. (6) DVT prophylaxis Current Visit: Yes Status: Acute Base Code: Z29.9 - ENCOUNTER FOR PROPHYLACTIC MEASURES, UNSPECIFIED Comment: 04/10/19: -Moderate risk due to hospitalization and illness -Lovenox 40mg SQ daily (7) Full code status Current Visit: Yes Status: Acute Base Code: Z78.9 - OTHER SPECIFIED HEALTH STATUS Comment: 04/10/19: -Full code this admission - Hospitalization Course Hospital Course: 58 year old female patient presented to ED for evaluation of worsening cough and shortness of breath. Patient reports [facility] Amox[facility] and steroids for bronchitis. Patient states that as soon as the steroids were completed she noted worsening shortness of breath resume. Patient reports a non-productive cough, denies fever or chills. Patient is a current smoker, also reports a history of asthma which is treated with prn albuterol. Patient reports a history of only HTN in addition to the asthma. PCP: Dr. Janessa Calles ([facility]) ED Course: CXR: RML and RADHAMES infiltrates WBC 9.6 Troponin <0.01 Influenza negative EK, sinus tachycardia Rocephin 1g q12h Azithromycin 500mg daily 125mg Solumedrol, 60mg q8h Duoneb q4h 04/08/19: Patient A&O x 4, resting comfortably in bed. Mild conversational dyspnea noted. Reports mild rib pain with coughing. Hypertension noted on exam, denies headache, dizziness, numbness, or chest pain. 04/09/19-04/10/19: Evaluation of the patient yesterday and today showed marked improvement in respiratory status. She was able to maintain oxygen saturations without supplemental oxygen and was able to converse without dyspnea. The patient's blood pressure was of concern over the past 2 days and despite the addition of Amlodipine still continued to be uncontrolled. Aldactone 25mg was added today and BP improved. In addition her potassium was 2.9 on morning labs which was repleted with 40meq of oral potassium. Procedures: Imaging and X-Rays 04/08/19 11:02 CHEST 2 VIEWS [RAD] Stat Cardiology Procedures 04/08/19 11:02 Automation Mechanic .Continuous EKG NOW 04/08/19 12:47 Automation Mechanic .Continuous Abnormal Labs: Abnormal Lab Results 04/08/19 04/08/19 04/08/19 Range/Units 11:15 11:15 14:45 WBC (4.2-12.2) K/uL Lymphocytes % 15.7 L (16-45) % Potassium 3.2 L (3.4-4.5) mmol/L Random Glucose 132 H (74-109) mg/dL NT-Pro-B Natriuret Pep 325.90 H (<125) pg/mL Urine Glucose (UA) 100 mg/dl H (NEGATIVE) 04/09/19 04/10/19 04/10/19 Range/Units 06:20 06:33 06:33 WBC 13.0 H (4.2-12.2) K/uL Lymphocytes % (16-45) % Potassium 2.9 L* (3.4-4.5) mmol/L Random Glucose 201 H 136 H (74-109) mg/dL NT-Pro-B Natriuret Pep (<125) pg/mL Urine Glucose (UA) (NEGATIVE) Condition at Discharge: (1) Good Discharge Medications - Discharge Medications Prescriptions: Spironolactone [Aldactone] 25 mg PO DAILY #30 tablet Amlodipine Besylate [Norvasc] 10 mg PO DAILY #30 tab Cefdinir [Omnicef] 300 mg PO BID #8 cap Prednisone [Prednisone 20Mg] 40 mg PO DAILYWM #6 tab Azithromycin [Zithromax] 500 mg PO DAILY #4 tab Home Medications: Ambulatory Orders Albuterol Sulfate [Ventolin Hfa] 1 - 2 puff IH .EVERY 4-6 HOURS PRN 04/08/19 [Last Taken Unknown] Guaifenesin [Mucinex] 1,200 mg PO DAILY 04/08/19 [Last Taken Unknown] Lisinopril/Hydrochlorothiazide [Lisinopril-Hctz 20-12.5 mg Tab] 1 each PO DAILY 04/08/19 [Last Taken Unknown] Amlodipine Besylate [Norvasc] 10 mg PO DAILY #30 tab 04/10/19 [Last Taken Unknown] Azithromycin [Zithromax] 500 mg PO DAILY #4 tab 04/10/19 [Last Taken Unknown] Cefdinir [Omnicef] 300 mg PO BID #8 cap 04/10/19 [Last Taken Unknown] Prednisone [Prednisone 20Mg] 40 mg PO DAILYWM #6 tab 04/10/19 [Last Taken Unknown] Spironolactone [Aldactone] 25 mg PO DAILY #30 tablet 04/10/19 [Last Taken Unknown] Discharge Plan - Discharge Instructions Activity at Discharge: Resume Usual Activities As Tolerated Diet at Discharge: Low Fat, Low Cholesterol, Low Salt Diet Additional Instructions: New patient appointment with Dr. Mccray April 24 at 1:00pm. Please complete and bring all new patient paperwork with you to your appointment. Call the Family Practice if any questions ([phone]). Continue taking Prednisone with tapering dose 40, 40, 20, 20 over the next 4 days. Complete course of antibiotics Azithromycin and Cefdinir as ordered. I added two new blood pressure medications for you. Norvasc 10mg daily in addition to Aldactone 25mg daily. Continue to take these until seen in the office. Quality Measures - Quality Measures Quality Measures: Documentation of Current Medications in Medical Record, Screening for High Blood Pressure and F/U Documented - Current Medications Quality Measure: Measure #130: Documentation of Current Medications Documentation of Current Medications: <Current Medications Documented/Reviewed> [[id number]] - Blood Pressure Screening Quality Measure: Screening for High Blood Pressure and Follow-Up Documented Does Patient Have Any of the Following: Active Dx of HTN Blood Pressure Classification: Hypertensive Reading Systolic Measurement: 192 Diastolic Measurement: 118 Screening for High Blood Pressure: Patient Exclusion, Hx of HTN [G9744] - Elder Abuse Suspicion Index EASI Reference Information: Dipak CHRISTIE, Gloria C, Valery D, Carmela Lindsay.Development and validation of a tool to assist physicians identification of elder abuse: The Elder Abuse Suspicion Index (EASI ). Journal of Elder Abuse and Neglect, 2008; 20 (3): 276-300.
== END 2019-04-10 13:50 | disposition home or self-care (01) | DRG 195 ==
LOC: ER 10:51 → MEDSURG 12:44
PROVIDERS: ADMIT Internal Medicine; ATTEND Internal Medicine
DX: J18.1 Lobar pneumonia, unspecified organism (principal); J45.909 Unspecified asthma, uncomplicated; R05 Cough; I10 Essential (primary) hypertension; F17.210 Nicotine dependence, cigarettes, uncomplicated; Z86.79 Personal history of other diseases of the circulatory system
CPT/HCPCS: 71046; 80048; 80053; 81001; 83880; 84132; 84484; 85025; 85027; 90732; 93005; 93010; 94640; 94760; 94761; 96365; 96375; 99223; 99233; 99285; J0696; J1650; J2930; J7512

== ENCOUNTER 2019-05-31 05:53 | Day surgery (SDC) | payer BC, OTHER ==
[2019-05-31] MEDS ORDERED: PROPOFOL 10 MG/ML VIAL IV ONE (05:54)
[2019-05-31] MEDS ORDERED: LIDOCAINE 2% MDV (20MG/ML) 20ML VIAL IV ONE (05:54)
--- NOTE | 2019-06-10 08:00 | Operative Note ---
DATE OF SERVICE: 05/31/2019. DATE OF SURGERY: 05/31/2019. REQUESTING PROVIDER: Mp Mccray Jr., MD. SURGEON: Ashley Roach MD. OPERATION: COLONOSCOPY. INDICATION FOR PROCEDURE: This is a 58-year-old female with history of colon polyps, last colonoscopy about 6 months ago at [facility], who presented for surveillance colonoscopy. POSTOPERATIVE DIAGNOSES: 1. Left-sided colon diverticulosis. 2. A 3 mm ascending colon polyp that was removed by cold biopsy forceps. 3. A 3 mm size polyp in the rectum that was removed by cold biopsy forceps. 4. A 1.5 cm sessile rectal polyp that was removed by cold snare. 5. Otherwise normal colon. SEDATION: Sedation is per Anesthesia. Pulse oximetry was monitored throughout the duration of the procedure to maintain O2 saturation of 90% or greater. Supplemental oxygen was administered via nasal cannula. Cardiac and vital signs were monitored throughout the duration of the procedure and they were stable. PROCEDURE: The procedure of colonoscopy, risks and alternatives to the procedure, including the risks of bleeding and perforation among others, were explained to the patient. She voiced understanding and agreed to have the procedure done. Physical examination was performed and the patient was found stable for sedation. The patient was then placed in the left lateral position and sedation was initiated. Digital rectal exam was performed and showed small external hemorrhoids with no palpable rectal masses. A lubricated Olympus PCF1 80AL colonoscope was then inserted into the rectum and under direct visualization was advanced to the cecum without difficulty. The ileocecal valve and appendiceal orifice were identified and photographed. Colonic mucosa was carefully examined upon introduction of the colonoscope. There were scattered diverticula in the sigmoid and descending colon. In the ascending colon was a 3 mm size polyp that was removed by cold biopsy forceps. The colonoscope was then withdrawn while carefully reexamining the colonic mucosa surfaces. No other lesions were noted. The cecum, the rest of the ascending colon, transverse colon, descending colon, and sigmoid colon mucosa appeared normal. No other lesions were noted. The retroflexion maneuver was performed and appeared normal. The rest of the colonic mucosa was normal. The colonoscope was then withdrawn, and the procedures were terminated. The patient tolerated the procedures well without immediate complications. She remained in stable vital signs and was transferred to the recovery room. PLAN AND RECOMMENDATIONS: 1. She is to be on a high-fiber diet. 2. She is to have repeat colonoscopy for surveillance in 2 or 3 years, depending on the histology of the polyps. Thank you for allowing me to participate in the care of your patient. JHOAN
== END 2019-05-31 07:59 | disposition home or self-care (01) ==
LOC: HOP 05:53
PROVIDERS: ATTEND Internal Medicine Gastroenterology
DX: Z86.010 Personal history of colon polyps (principal); D12.2 Benign neoplasm of ascending colon; K62.1 Rectal polyp; J45.909 Unspecified asthma, uncomplicated; F17.210 Nicotine dependence, cigarettes, uncomplicated; I10 Essential (primary) hypertension